=== PATIENT | male | born 1980 | race Caucasian/White ===

== ENCOUNTER → 2022-09-16 | Outpatient (CLI) | payer BC, OTHER ==
--- NOTE | 2022-09-16 15:03 | Diagnostic Imaging Report ---
PROCEDURE: US Thyroid. TECHNIQUE: Multiple real-time grayscale images were obtained of the thyroid in various projections. INDICATION: Abnormal thyroid labs COMPARISON: None available. FINDINGS: Right thyroid lobe: The right thyroid lobe measures 5.6 x 1.6 x 2.0 cm.No nodules are present. Normal vascularity is seen. Isthmus: The thyroid isthmus measures 0.4 cm. Left thyroid lobe: The left thyroid lobe measures 4.8 x 1.4 x 1.5 cm. No nodules are present. Normal vascularity is seen. IMPRESSION:Normal thyroid ultrasound. Dictated by: Dictated on workstation # [id number]
== END ==
LOC: RAD 08:00
PROVIDERS: ATTEND Family Medicine
DX: R94.6 Abnormal results of thyroid function studies (principal)
CPT/HCPCS: 76536